=== PATIENT | female | born 1945 | race Caucasian/White ===

== ENCOUNTER 2018-07-06 11:42 | Emergency (ER) | payer OTHER ==
[~2018-07-06] VITALS: Ht 157.5 cm; Wt 70.8 kg
[2018-07-06] MEDS ORDERED: SYNTHROID112 MCG PO (12:09)
[2018-07-06] MEDS ORDERED: SYNTHROID100 MCG PO (12:09)
[2018-07-06] MEDS ORDERED: AVAPRO150 MG PO (12:10)
[2018-07-06] MEDS ORDERED: NORVASC5 MG PO (12:11)
[2018-07-06] MEDS ORDERED: CRESTOR20 MG PO (12:11)
[2018-07-06] MEDS ORDERED: VITAMIN D10000 UNIT PO (12:12)
== END 2018-07-06 19:19 | disposition home or self-care (01) ==
LOC: ER 11:42
DX: N39.0 Urinary tract infection, site not specified (principal); R10.2 Pelvic and perineal pain; R10.31 Right lower quadrant pain

== ENCOUNTER 2018-08-17 09:28 | Inpatient (IN) | payer OTHER ==
[~2018-08-17] VITALS: Ht 157.5 cm; Wt 70.8 kg
[~2018-08-17 09:28] MED LIST: AVAPRO150 MG PO; CRESTOR20 MG PO; NORVASC5 MG PO; SYNTHROID100 MCG PO; SYNTHROID112 MCG PO; VITAMIN D10000 UNIT PO
[2018-08-23] MEDS ORDERED: INTESTINEX680 M1 PO (13:43)
[2018-08-23] MEDS ORDERED: AMOX-CLAV 500-1 EACH PO (13:43)
== END 2018-08-23 13:59 | disposition home or self-care (01) | DRG 373 ==
LOC: ER 09:28 → SURH 23:13
PROC: BW25Y0Z Computerized Tomography (CT Scan) of Chest, Abdomen and Pelvis using Other Contrast, Unenhanced and Enhanced (ICD-10-PCS; 2018-08-17)
PROC: 0W9G30Z Drainage of Peritoneal Cavity with Drainage Device, Percutaneous Approach (ICD-10-PCS; principal; 2018-08-19)
PROC: BW25Y0Z Computerized Tomography (CT Scan) of Chest, Abdomen and Pelvis using Other Contrast, Unenhanced and Enhanced (ICD-10-PCS; 2018-08-22)
DX: K35.33 Acute appendicitis with perforation, localized peritonitis, and gangrene, with abscess (principal); E03.8 Other specified hypothyroidism; B96.29 Other Escherichia coli [E. coli] as the cause of diseases classified elsewhere; B95.4 Other streptococcus as the cause of diseases classified elsewhere; B96.6 Bacteroides fragilis [B. fragilis] as the cause of diseases classified elsewhere; B96.3 Hemophilus influenzae [H. influenzae] as the cause of diseases classified elsewhere

== ENCOUNTER 2018-08-31 14:17 | Inpatient (IN) | payer OTHER ==
[~2018-08-31] VITALS: Ht 157.5 cm; Wt 70.3 kg
[~2018-08-31 14:17] MED LIST changes: +AMOX-CLAV 500-1 EACH PO; +INTESTINEX680 M1 PO
[2018-09-07] MEDS ORDERED: FLAGYL500MG PO (17:43)
[2018-09-07] MEDS ORDERED: SYNTHROID100 MCG PO (17:43)
== END 2018-09-07 22:00 | disposition home or self-care (01) | DRG 871 ==
LOC: ER 14:17 → MEDI 09-01 08:06 → SURH 09-01 08:06
PROC: 3E0336Z Introduction of Nutritional Substance into Peripheral Vein, Percutaneous Approach (ICD-10-PCS; 2018-09-02)
PROC: 8E0ZXY6 Isolation (ICD-10-PCS; 2018-09-02)
PROC: 0W9G30Z Drainage of Peritoneal Cavity with Drainage Device, Percutaneous Approach (ICD-10-PCS; principal; 2018-09-03)
DX: A41.9 Sepsis, unspecified organism (principal); K35.33 Acute appendicitis with perforation, localized peritonitis, and gangrene, with abscess; A04.72 Enterocolitis due to Clostridium difficile, not specified as recurrent; E03.8 Other specified hypothyroidism

== ENCOUNTER 2019-01-01 08:15 | Inpatient (IN) | payer OTHER ==
[~2019-01-01] VITALS: Ht 157.5 cm; Wt 68.9 kg
[~2019-01-01 08:15] MED LIST changes: +FLAGYL500MG PO
[2019-01-05] MEDS ORDERED: ULTRACET PO (10:54)
[2019-01-05] MEDS ORDERED: INTESTINEX680 M1 PO (10:54)
[2019-01-05] MEDS ORDERED: FLAGYL500MG PO (10:54)
== END 2019-01-05 11:48 | disposition home or self-care (01) | DRG 340 ==
LOC: EDSTATUS 08:15 → ADM 08:15 → O/R 01-04 07:14 → SURH 01-04 07:14
PROVIDERS: ADMIT Surgery
PROC: 0DTJ4ZZ Resection of Appendix, Percutaneous Endoscopic Approach (ICD-10-PCS; principal; 2019-01-04 11:15)
DX: K35.33 Acute appendicitis with perforation, localized peritonitis, and gangrene, with abscess (principal); E03.8 Other specified hypothyroidism

== ENCOUNTER 2021-07-02 17:22 | Emergency (ER) | payer OTHER ==
[~2021-07-02] VITALS: Ht 160 cm; Wt 73.5 kg
[~2021-07-02 17:22] MED LIST changes: +ULTRACET PO
[2021-07-02] MEDS ORDERED: COZAAR100 MG (19:44)
== END 2021-07-02 23:56 | disposition home or self-care (01) ==
LOC: ER 17:22
DX: K62.5 Hemorrhage of anus and rectum (principal)

== ENCOUNTER 2021-08-09 06:01 | Day surgery (SDC) | payer OTHER ==
[~2021-08-09 06:01] MED LIST changes: +COZAAR100 MG
== END 2021-08-09 11:05 | disposition home or self-care (01) ==
LOC: AMB-ENDOS 06:01
PROVIDERS: ATTEND Surgery
DX: K63.5 Polyp of colon (principal); Z20.822 Contact with and (suspected) exposure to COVID-19